=== PATIENT | male | born 1980 | race Caucasian/White ===

== ENCOUNTER 2021-06-07 09:48 | Outpatient (CLI) | payer MEDICAID, SELFPAY ==
--- NOTE | 2021-06-07 15:12 | DI.US_ITS ---
APPROVED REPORT EXAM: Comprehensive 2D, Doppler, and color-flow Echocardiogram Patient Location: Out-Patient Bond Runner: Delilah Rubio RDCS (AE) Indications: Abnormal EKG, Atrial Fibrillation, Chest pain, H/O Transposition of Great Vessels, VSD r epair 1980 Other Information Study Quality: Fair. Technically limited study due to body habitus. 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 Septal motion is paradoxic The right atrium is severely enlarged. The left atrium is small Probably trileaflet aortic valve with trace regurgitation The mitral valve appears structurally normal with trace regurgitation The tricuspid valve is structurally normal with moderate to severe regurgitation. Estimated right ve ntricular systolic pressure is 71 mmHg Mildly dilated aortic root measuring 3.86 cm Wall motion Left Ventricle The left ventricle is small Ventricular systolic function is borderline normal There is normal left v entricular wall thickness. Septal motion appears paradoxic or due to IVCD LVEF 45 to 50% Right Ventricle Right ventricle is severely dilated. Right ventricle is moderately hypokinetic. The RVSP is 71.3mmHg. Atria The left atrium is small Right atrium is severely dilated. The interatrial septum is intact with no e vidence for an atrial septal defect. Aortic Valve The aortic valve is normal in structure. Aortic valve is probably trileaflet. There is no aortic valv ular stenosis. Trace aortic regurgitation. Mitral Valve The mitral valve is normal in structure. No evidence of mitral valve stenosis. Trace mitral regurgita tion. Tricuspid Valve The tricuspid valve is normal in structure. There is no tricuspid valve stenosis. Moderate to severe tricuspid regurgitation. Pulmonic Valve Pulmonic valve is not well visualized. There is no pulmonic valvular stenosis. There is no pulmonic v alvular regurgitation. Great Vessels Aortic root is mildly dilated. Ascending aorta is not well visualized. Aortic arch is normal in calib er. IVC is normal in size and collapses >50% with inspiration. Pericardium There is no pericardial effusion. 2D Dimensions IVSD d PLAX 0.89 cm M: 0.6-1.2 LV Vol A2C d MOD 84.6 mL LVPW d PLAX 0.93 cm M: 0.6 - 1.2 LV Vol A4C d MOD 75.1 mL LVID d PLAX 4.14 cm M: 4.2 - 5.8 LA vol/ BSA A2C s A-L 17.7 mL/m2 LVDs 3.20 cm M: 2.5 - 4.0 LA Area A2C s MOD 13.96 cm2 Ao Root d 3.86 cm M: 3.1 - 3.7 LV EF A4C MOD 45.3 % LV EF Teichholz 45.9 % LV EF A2C MOD 45.6 % LVEF (Hunt's) 42.31 % M: 52 - 72 LV EF Biplane MOD 42.3 % LV Volume 60.45 mL M: 62 - 150 SV 34.70 mL LV Volume Index 28.64 mL/m2 M: 34 - 74 SV Index 16.45 mL/m2 LV Vol Biplane MOD 82.0 mL FS 22.60 % M-Mode TAPSE 1.18 cm (M/F) >1.7 LV Diastology MV E' medial 0.090 (>0.07 m/s) E/A Ratio 2.0 LV E/e MED 10.15 (<14) MV E Vmax 0.91 (0.4-1.3 m/s) MV E' lateral 0.092 (>0.1 m/s) MV A Vmax 0.45 (0.4-1.3 m/s) LV E/e LAT 9.90 (<14) MV E/A Ratio 1.85 MV E/E' medial 10.16 MV E/E' lateral 9.95 Aortic Valve LVOT Area 3.83 cm2 AoV Area Vmax 2.93 cm2 LVOT Vmax 0.74 m/s AoV Area/ BSA (Vmax) 1.39 cm2/m2 LVOT Mean Rustam. 0.45 m/s MARYELLEN Mean Rustam. 2.41 cm2 LVOT Peak Grad 2.2 mmHg MARYELLEN Mean Rustam. Index 1.14 cm2/m2 LVOT Mean Grad 1.0 mmHg LVOT VTI 0.105 m LVOT Diam s 2.20 cm AoV Vmax 0.97 m/s Velocity Ratio 0.76 AoV Mean Rustam. 0.72 m/s AoV Peak Grad 3.7 mmHg LVOT SV 40.20 mL AoV Mean Grad 2.3 mmHg AoV VTI 0.155 m AoV Area VTI 2.60 cm2 AoV Area/ BSA (VTI) 1.23 cm/m2 Mitral Valve MV DT 103 (160-240 msec) MV PHT 30 msec MV Area PHT 7.36 cm2 MV VTI 0.238 m MV Area VTI 1.69 (4.0-6.0 cm2) Tricuspid Valve TR Peak Grad 68.2 mmHg TR Vmax 4.13 m/s RA Pressure 3.00 mmHg RVSP (TR) 71.3 mmHg
== END 2021-06-07 10:08 ==
PROVIDERS: Visit Provider Internal Medicine
DX: R94.31 Abnormal electrocardiogram [ECG] [EKG] (principal); I48.20 Chronic atrial fibrillation, unspecified; Q21.0 Ventricular septal defect; R07.9 Chest pain, unspecified; Z87.74 Personal history of (corrected) congenital malformations of heart and circulatory system
CPT/HCPCS: 93306